=== PATIENT | female | born 1965 | race Caucasian/White ===

== ENCOUNTER 2019-03-01 09:33 | Outpatient (REF) | payer OTHER, SELFPAY ==
[2019-03-01 20:59] LABS: Cholesterol 251 mg/dL (50-200); HDL Cholesterol 57 mg/dL (40-60); LDL CHOLESTEROL 163 mg/dL (<100); Triglyceride 158 mg/dL (30-150)
== END 2019-03-01 09:53 ==
LOC: NCHCN 09:33
PROVIDERS: PCP Internal Medicine; Visit Provider Internal Medicine
DX: Z13.220 Encounter for screening for lipoid disorders (principal)
CPT/HCPCS: 80061; 83721

== ENCOUNTER 2019-11-04 15:35 | Outpatient (REF) | payer OTHER, SELFPAY ==
[2019-11-04 21:08] LABS: Abs Immature Grans 0.03 k/cumm (0.0-0.09); Absolute Basophil Count 0.04 k/cumm (0.0-0.2); Absolute Eosinophil Count 0.29 k/cumm (0.0-0.7); Absolute Lymphocyte Count 2.58 k/cumm (1.2-3.4); Absolute Monocyte Count 1.02 k/cumm (0.11-0.7); Absolute Neutrophil Count 8.69 k/cumm (1.2-6.7); Basophils % 0.3; Eosinophils % 2.3; HCT 42.9 % (36.0-46.0); HGB 14.3 g/dL (12.0-15.5); Immature Grans % 0.2 %; Lymphocytes % 20.4; Mean Corp. HGB Concentration 33.3 g/dL (32.0-36.0); Mean Corpuscular Hemoglobin 31.9 pg (27.0-33.0); Mean Corpuscular Volume 95.8 fL (80-95); Mean Platelet Volume 10.3 fL (8.0-11.0); Monocytes % 8.1; Neutrophils % 68.7; Platelet Count 297 x1000/uL (130-400); RBC 4.48 m/cumm (4.00-5.20); RBC Distribution Width 13.2 % (11.7-14.6); White Blood Cell Count 12.65 k/cumm (4.4-10.8)
== END 2019-11-04 15:55 ==
LOC: NCHCN 15:35
PROVIDERS: PCP Internal Medicine; Visit Provider Nurse Practitioner Community Health
DX: R10.9 Unspecified abdominal pain (principal)
CPT/HCPCS: 85025

== ENCOUNTER 2020-09-13 17:09 | Outpatient (REF) | payer OTHER, SELFPAY ==
--- NOTE | 2020-09-13 15:20 | PAPFT_PTH ---
PATIENT: SHANEL ESTRADA LOC: [facility] U#:[id number] AGE/SX: 55/F ROOM: RE09/13/[address]: Denisse Garcia : 1965 BED: DIS: 09/13/2020 SPEC #: [id number] RECD: 09/14/20 12:48 STATUS: LORRAINE REQ #: [id number] TRACE: 09/13/20 15:[address]: Denisse Garcia DEPT: [facility] Cytology RECD BY: Veronica Gomez ENTERED: 09/14/20 12:48 SP TYPE: PAPFT OTHR DR: Yaya Foy Tissues: 1 - CX/ENDOCX FOR PAP SMEARS Procedures: PAP THIN PREP/[facility] Screening HPV DNA PROBE Comments: [id number] ([facility]#)
[2020-09-13 22:34] LABS: HCT 42.7 % (36.0-46.0); HGB 14.1 g/dL (11.2-15.7); MCV 96.8 fL (80-95); MPV 10.5 fL (8.0-11.0); Platelet Count 332 10^3/uL (130-400); RBC 4.41 10^6/uL (3.93-5.22); RDW 12.8 % (11.7-14.6); RDW-SD 46.1 fL; WBC 7.35 10^3/uL (4.4-10.8)
[2020-09-13 23:01] LABS: ALT 19 U/L (14-59); AST 9 U/L (15-37); Albumin 4.1 g/dL (3.4-5.0); Alkaline Phosphatase 92 U/L (46-116); Anion Gap 10.4 mmol/L (3-11); BUN 11 mg/dL (7-18); Bilirubin, Total 0.5 mg/dL (0.2-1.0); CO2 26.6 mmol/L (21.0-32.0); CREATININE 0.66 mg/dL (0.55-1.02); Calcium 9.6 mg/dL (8.5-10.1); Calculated LDL 134 mg/dL (<100); Chloride 105 mmol/L (98-107); Cholesterol 234 mg/dL (<200); Glucose 101 mg/dL (74-106); HDL Cholesterol 71 mg/dL (40-60); Potassium 4.1 mmol/L (3.5-5.1); Sodium 142 mmol/L (136-145); Total Protein 7.6 g/dL (6.4-8.2); Triglyceride 147 mg/dL (<150)
[2020-09-21 15:33] LABS: Hepatitis C Ab w Rflx HCV PCR Negative (Negative)
== END 2020-09-13 17:29 ==
LOC: NCHCN 17:09
PROVIDERS: PCP Internal Medicine; Visit Provider Internal Medicine
DX: Z00.00 Encounter for general adult medical examination without abnormal findings (principal); E78.5 Hyperlipidemia, unspecified; F17.200 Nicotine dependence, unspecified, uncomplicated; F41.9 Anxiety disorder, unspecified; F10.20 Alcohol dependence, uncomplicated; K92.1 Melena; Z12.4 Encounter for screening for malignant neoplasm of cervix; Z11.51 Encounter for screening for human papillomavirus (HPV)
CPT/HCPCS: 80053; 80061; 85027; 86803; 88142; 87624